=== PATIENT | female | born 1985 | race Caucasian/White ===

== ENCOUNTER 2019-04-15 10:17 | Emergency (ER) | payer OTHER ==
[~2019-04-15] VITALS: Ht 157.5 cm; Wt 79.4 kg
[~2019-04-15 10:17] MED LIST: PREN-385 PO
[2019-04-15 10:28] VITALS: BP 124/75
--- NOTE | 2019-04-15 10:35 | NUR ---
PT AMB TO BED 8 WITH STEADY GAIT
--- NOTE | 2019-04-15 10:47 | NUR ---
DR OROZCO AT BEDSIDE
--- NOTE | 2019-04-15 11:00 | NUR ---
C/O EPIGASTRIC PAIN 12/03 X 3 WEEKS. DENIES N/V/D. BOWEL SOUNDS ACTIVE IN ALL 4 QUADRANTS. TENDER TO TOUCH, SOFT. LAST BM NORMAL TODAY. PATIENT STATES PAIN IS WORSE WITH EATING. VSS AT THIS TIME. AA0X4. BED IS DOWN, LOCKED, BED RAIL X 1, ERMD TO SEE PT. MED HX:TUBALIGATION
--- NOTE | 2019-04-15 11:09 | NUR ---
LAB AT BEDSIDE
--- NOTE | 2019-04-15 11:19 | NUR ---
US AT BEDSIDE
[2019-04-15 11:24] LABS: BASOPHILS % (AUTO) 0.5 % (0.0-2.0); EOSINOPHILS # (AUTO) 0.8 K/uL (0-0.4); EOSINOPHILS % (AUTO) 12.7 % (0.0-4.0); HEMATOCRIT 38.5 % (36-48); HEMOGLOBIN 13.3 g/dL (12.0-16.0); LYMPHOCYTES # (AUTO) 2.7 K/uL (2.5-16.5); LYMPHOCYTES % (AUTO) 44.7 % (20.5-51.1); MEAN CORPUSCULAR HEMOGLOBIN 30 pg (27-31); MEAN CORPUSCULAR HGB CONC 35 g/dL (33-37); MEAN CORPUSCULAR VOLUME 87.1 fL (80-94); MONOCYTES # (AUTO) 0.3 K/uL (0.8-1.0); MONOCYTES % (AUTO) 4.5 % (1.7-9.3); NEUTROPHILS # (AUTO) 2.3 K/uL (1.8-7.7); NEUTROPHILS % (AUTO) 37.6 % (42.2-75.2); PLATELET COUNT (AUTO) 166 K/uL (140-450); RED BLOOD CELL COUNT(AUTO) 4.42 MIL/uL (4.20-5.40); RED CELL DISTRIBUTION WIDTH 15.3 % (11.6-13.7); WHITE BLOOD COUNT (AUTO) 6.1 K/uL (4.8-10.8)
[2019-04-15 11:58] LABS: ANION GAP 10.7 (8-16); CARBON DIOXIDE 28.4 mmol/L (21-32); CREATININE 1.1 mg/dL (0.6-1.3); POTASSIUM 4.1 mmol/L (3.5-5.1); TOTAL BILIRUBIN 0.8 mg/dL (0.0-1.0)
[2019-04-15 12:45] VITALS: BP 122/71
== END 2019-04-15 13:03 | disposition home or self-care (01) ==
LOC: MED 10:17
DX: K29.70 Gastritis, unspecified, without bleeding (principal); Z88.8 Allergy status to other drugs, medicaments and biological substances; Z79.899 Other long term (current) drug therapy; Z98.51 Tubal ligation status
CPT/HCPCS: 36415; 76705; 80053; 83690; 85025; 99284; Q0092